=== PATIENT | female | born 1980 | race Caucasian/White ===

== ENCOUNTER 2020-01-31 21:19 | Emergency (ER) | payer MEDICARE, MEDICAID, SELFPAY ==
[2020-01-31 21:40] VITALS: BP 111/70; PULSE 87; RESP 20; TEMP 37; O2SAT 100
--- NOTE | 2020-01-31 22:00 | ED.DENTAL ---
HPI - Dental/Oral General Chief complaint: Dental/Oral Stated complaint: tooth pain Source: patient and family Mode of arrival: wheelchair Limitations: no limitations History of Present Illness HPI Narrative: Patient presents with dental located in the upper left molar and her lower left molar with surrounding gum inflammation currently no fever no chills no shortness of breath. The patient was seen in emergency room approximately 1 week ago was given antibiotics and she completed did see her dentist and was informed that she needed dental extractions. Currently having intense pain she rates about a 10/10 in the upper and lower molar area. Teeth map: 1. upper left molar pain 2. lower left molar pain Onset (ago): week(s) Duration: constant Severity: severe Severity scale (1-10): 10 Relieving factors: nothing Exacerbating factors: chewing, drinking fluids and swallowing Context: history of dental caries and poor dental care Associated symptoms: gum swelling Treatment prior to arrival: oral analgesic Related Data Allergies Allergy/AdvReac Type Severity Reaction Status Date / Time bupropion [From Wellbutrin] Allergy Unknown Verified 01/31/20 22:07 vancomycin Allergy Unknown Verified 01/31/20 22:07 Review of Systems Review of Systems: All systems reviewed & are unremarkable except as noted in HPI and below PMFSH Past Medical History Medical History Dental caries Exam Const: General: no acute distress and alert Orientation/consciousness: patient oriented x3 HENMT: Head: normal to inspection Other: left upper and lower molar dental caries with surrounding gum inflammation Eyes: Conjunctivae: conjunctivae normal Pupils: Equal, round and reactive pupils present EOM: EOMs intact bilaterally Neck: Neck: normal visual inspection, no lymphadenopathy and no meningeal signs Chest: Chest palpation & inspection: normal inspection of the chest and abnormal inspection of the chest Resp: Effort & Inspection: normal respiratory effort Auscultation: clear to auscultation bilaterally Cardio: Rate: regular rate Rhythm: regular rhythm GI: Auscultation: normal bowel sounds Skin: General skin exam: normal color Rashes: no rashes Extrem: General: normal to inspection Psych: Appearance: grossly normal Mental Status: mental status grossly normal Course Course Emergency Course: patient received local injection of lidocaine 1% to the left upper molar area and the left lower molar area and area has become numb and with pain relief. Vital Signs Vital signs: Vital Signs Temperature 37.0 C 01/31/20 21:40 Pulse Rate 87 01/31/20 21:40 Respiratory Rate 20 01/31/20 21:40 Blood Pressure 111/70 01/31/20 21:40 Pulse Oximetry 100 01/31/20 21:40 Temperature 37.0 C 01/31/20 21:40 Pulse Rate 87 01/31/20 21:40 Respiratory Rate 20 01/31/20 21:40 Blood Pressure 111/70 01/31/20 21:40 Pulse Oximetry 100 01/31/20 21:40 Procedures Nerve Block Nerve Block 1: Nerve block date: 01/31/20 Nerve block time: 22:10 Time out performed: No Local Anesthetic: lidocaine 1% Amount of anesthesia used (mL): 5 Side: left Nerve Blocks: other ( Dental) Procedure Successful: Yes Patient Tolerated Procedure: well Complications: none Critical Care Time Critical Care Time Critical Care Time: No Discharge Plan Discharge Clinical Impression: Dental caries, Toothache, Dental abscess Patient Disposition: Home, Self-Care Condition: Stable Instructions: Antibiotic Form, Dental Abscess (ED), Toothache (ED) Additional Instructions: Take medicine as prescribed, and follow up with some dentist as soon as possible. Prescriptions: New clindamycin HCl 300 mg capsule 300 mg PO Q6H Qty: 40 RF: 0 tramadol [Ultram] 50 mg tablet 50 mg PO Q6H PRN (Reason: pain) Qty: 20 RF: 0 Fo
[2020-01-31] MEDS: CLINDAMYCIN HCL 150 MG CAP 600 MG PO (22:01)
[2020-01-31] MEDS: KETOROLAC (*BKC) 60 MG/2 ML VIAL IM (22:01)
[2020-01-31] MEDS: LIDOCAINE HCL 1% LOCAL INJ 20 ML VIAL (22:01)
[2020-01-31 22:11] VITALS: RESP 20; O2SAT 100
== END 2020-01-31 22:16 | disposition home or self-care (01) ==
PROVIDERS: Emergency Provider Emergency Medicine
DX: K02.9 Dental caries, unspecified (principal); K08.89 Other specified disorders of teeth and supporting structures; K04.7 Periapical abscess without sinus
CPT/HCPCS: 64999; 96372; 99283; A9270; J1885

== ENCOUNTER 2020-02-04 11:57 | Emergency (ER) | payer MEDICARE, MEDICAID, SELFPAY ==
--- NOTE | ~2020-02-04 | CT_ITS ---
EXAMINATION: CT abdomen pelvis w con DATE: 02/04/2020 13:30 INDICATION: Mid abdominal pain. Nausea and constipation. TECHNIQUE: Computed tomography (CT) of the abdomen and pelvis was performed with 100 mL Omnipaque-350 intravenous contrast. Automated exposure control and iterative reconstruction technique were employe d. The dose-length product was 753.50 mGy-cm. COMPARISON: None FINDINGS: Mild bibasilar atelectasis. Visualized inferior heart is normal. No pericardial or pleural effusion. Stomach is unremarkable. The gallbladder is dilated to 4.1 cm diameter without evident wall thickenin g or pericholecystic inflammatory change to suggest acute cholecystitis. Liver, spleen, pancreas, grayson ateral adrenal glands and kidneys are normal. Postoperative change of prior right hemicolectomy with ileocolic anastomosis in the right abdomen. There is pelvic floor relaxation with stool in the rectum extending 3 cm below the level of the pubococcygeal line. There is suggestion of some wall thickenin g at the anus. There is a suture line extending from near the umbilicus to the dome of the bladder wh ere there is fatty infiltration of the wall of the otherwise decompressed bladder potentially represe nting either an ileal conduit or tract of a prior suprapubic catheter draining tract. 3.2 cm left adn exal cyst. There is a 4.6 cm lesion at the right adnexa with slightly greater than simple fluid atten uation most likely complex proteinaceous/hemorrhagic cyst. Approximate 4 cm enhancing fibroid at the posterior wall of the body of the anteverted uterus. Small amount of likely physiologic free fluid in the pelvis. No free intraperineal gas. No pathologically enlarged abdominal or pelvic lymphadenopath y. Thoracolumbar posterior spinal fusion with incompletely visualized bilateral vertical rods extendi ng caudally from the midthoracic spine into the lumbar spine with bilateral pedicle screws at T11-L2. Intrathecal pain pump in the anterior left pelvic wall with catheter extending cephalad into the andrea tral canal central canal at the level of L1-L2 and extending cephalad beyond the cephalad-most image which is at T9. There is a second disconnected retained catheter with distal tip in the central canal at the level of T9-T10 which exits between the spinous processes at L3-L4 with disconnected and the subcutaneous fat at the right flank. IMPRESSION: 1. 3.2 cm left adnexal cyst and 4.6 cm right adnexal lesion slightly greater than simple fluid attenu ation most likely complex proteinaceous/hemorrhagic cyst. Recommend 6-12 week follow-up ultrasound to document resolution. 2. Uterine fibroid. 3. Small amount of likely physiologic free fluid in the cul-de-sac. No other acute intra-abdominal/pe lvic process. 4. Postoperative changes as detailed above. Reviewed, dictated and finalized at location A. IMPRESSION: 1. 3.2 cm left adnexal cyst and 4.6 cm right adnexal lesion slightly greater th an simple fluid attenuation most likely complex proteinaceous/hemorrhagic cyst. Recommend 6-12 week follow-up ultrasound to document resolution. 2. Uterine fibroid. 3. Small amount of likely physiologic free fluid in the cul-de-sac. No other ac [place] intra-abdominal/pelvic process. 4. Postoperative changes as detailed above.
[2020-02-04 11:57] VITALS: BP 110/69; PULSE 85; RESP 16; TEMP 37.1; O2SAT 98
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
[2020-02-04 12:48] LABS: Basophils Absolute Auto 0.04 K/mm3 (0.00-0.10); Basophils Percent Auto 0.5 % (0.0-1.0); Eosinophils Absolute Auto 0.03 K/mm3 (0.02-0.50); Eosinophils Percent Auto 0.4 % (1.0-6.0); Hemoglobin 12.6 g/dL (12.0-15.0); Immature Granulocyte Absolute 0.02 K/mm3 (0.00-0.00); Immature Granulocyte Percent A 0.3 % (0.0-0.0); Lymphocytes Absolute Auto 1.11 K/mm3 (1.10-4.50); Lymphocytes Percent Auto 15.1 % (18.0-42.0); Mean Corpuscular HGB Conc 32.3 g/dL (32.0-36.0); Mean Corpuscular Hemoglobin 33.7 pg (27.0-31.0); Mean Corpuscular Volume 104.3 fL (78.0-102.0); Monocytes Absolute Auto 0.34 K/mm3 (0.10-0.90); Monocytes Percent Auto 4.6 % (2.0-11.0); Neutrophils Absolute Auto 5.8 K/mm3 (1.7-7.2); Neutrophils Percent Auto 79.1 % (50.0-70.0); Platelet Count Result 166 K/mm3 (150-420); Red Blood Count 3.74 M/mm3 (4.20-5.40); Red Cell Distribution Width 13.7 % (11.6-14.4); White Blood Count 7.4 K/mm3 (4.8-10.8)
[2020-02-04 13:06] LABS: Alanine Aminotransferase 12 U/L (14-59); Albumin Level 2.7 g/dL (3.4-5.0); Alkaline Phosphatase 85 U/L (46-116); Amylase 19 U/L (25-115); Anion Gap 17.9 mmol/L (7-16); Aspartate Amino Transferase 13 U/L (15-37); Bilirubin,Total 0.2 mg/dL (0.00-1.00); Blood Urea Nitrogen 19 mg/dL (7-18); CRP 8.4 mg/dL (0.0-0.9); Calcium 8.3 mg/dL (8.5-10.1); Carbon Dioxide 15 mmol/L (21-32); Chloride 108 mmol/L (98-108); Estimated CRCL calculation 96 ml/min; Estimated Glomerular Filt Rate > 60; Glucose 105 mg/dL (70-99); Lipase 31 U/L (73-393); Osmolality Calculated 288 mOsm/kg (285-295); Potassium 2.9 mmol/L (3.5-5.1); Sodium 138 mmol/L (136-145); Total Protein 6.9 g/dL (6.4-8.2)
[2020-02-04 13:08] LABS: Lactic Acid Reflex 0.8 mmol/L (0.4-2.0)
[2020-02-04] MEDS: POTASSIUM BICARBONATE 25 MEQ TABEF 50 MEQ PO (14:18)
[2020-02-04 14:27] VITALS: BP 109/64; PULSE 89; RESP 16; O2SAT 98
== END 2020-02-04 15:19 | disposition home or self-care (01) ==
PROVIDERS: Emergency Provider Emergency Medicine
DX: R10.84 Generalized abdominal pain (principal); D25.9 Leiomyoma of uterus, unspecified; K29.00 Acute gastritis without bleeding
CPT/HCPCS: 36415; 74177; 80053; 82150; 82948; 83605; 83690; 85025; 86140; 99284; A9270; Q9965